=== PATIENT | male | born 1960 | race Caucasian/White ===

== ENCOUNTER → 2024-03-13 08:13 | Outpatient (REF) | payer BC, SELFPAY | LOC: RAD 08:13 | PROVIDERS: ATTENDING PHYSICIAN Orthopaedic Surgery Adult Reconstructive Orthopaedic Surgery; FAMILY PHYSICIAN Family Medicine; OTHER PHYSICIAN Orthopaedic Surgery | DX: T84.098A Other mechanical complication of other internal joint prosthesis, initial encounter (principal) | CPT/HCPCS: 78315; A9503 ==